=== PATIENT | male | born 1995 | race Asian ===

== ENCOUNTER 2024-02-13 21:30 | Emergency (ER) | payer OTHER ==
[~2024-02-13] VITALS: Ht 162.6 cm; Wt 68.2 kg
[2024-02-13 21:51] VITALS: TEMP 98.6
[2024-02-13 22:28] LABS: BASOPHILS % (AUTO) 0.4 % (0.0-2.0); EOSINOPHILS % (AUTO) 2.4 % (1.0-6.0); HEMATOCRIT 44.7 % (41-53); HEMOGLOBIN 14.9 g/dL (13.5-17.5); LYMPHOCYTES # (AUTO) 2.3 K/uL (1.0-4.8); LYMPHOCYTES % (AUTO) 24.3 % (22.0-44.0); MEAN CORPUSCULAR HEMOGLOBIN 30.4 pg (26.0-34.0); MEAN CORPUSCULAR HGB CONC 33.3 G/dL (31.0-37.0); MEAN CORPUSCULAR VOLUME 91 fL (80-100); MONOCYTES # (AUTO) 0.8 K/uL (0.1-1.0); MONOCYTES % (AUTO) 8.4 % (2.0-9.0); NEUTROPHILS # (AUTO) 6.2 K/uL (1.8-7.7); NEUTROPHILS % (AUTO) 64.5 % (40.0-70.0); PLATELET COUNT (AUTO) 257 K/uL (150-450); RED CELL DISTRIBUTION WIDTH 13.3 % (11.5-14.5); WHITE BLOOD COUNT (AUTO) 9.6 K/uL (4.5-11.0)
[2024-02-13 22:35] LABS: ANION GAP 11 mmol/L (8-16); CALCIUM, TOTAL 8.6 mg/dL (8.8-10.5); CARBON DIOXIDE 25 mmol/L (22-29); CHLORIDE 105 mmol/L (98-107); GLOMERULAR FILTR. RATE CALC > 60 mL/min (>60); GLUCOSE,RANDOM 85 mg/dL (70-110); POTASSIUM 3.9 mmol/L (3.5-5.1); SODIUM SERUM 141 mmol/L (136-145); UREA NITROGEN, BLOOD 23 mg/dL (7-18)
[2024-02-13 22:42] LABS: TROPONIN I-HIGH SENSITIVITY 10 ng/L (<76)
[2024-02-13 23:00] LABS: ALANINE AMINOTRANSFERASE 29 U/L (12-78); ALBUMIN 3.9 g/dL (3.4-5.0); ALKALINE PHOSPHATASE 60 U/L (46-116); ASPARTATE AMINOTRANSFERASE 38 U/L (15-37); BILIRUBIN,TOTAL 0.4 mg/dL (0.1-1.0); LIPASE 40 U/L (16-77); TOTAL PROTEIN, SERUM 7.3 g/dL (6.4-8.2)
[2024-02-13 23:01] LABS: CREATINE KINASE, TOTAL ONLY 1319 U/L (39-308)
[2024-02-14] MEDS: SODIUM CHLORIDE 0.9% 1,000 ML IV ONE ×2 (00:08→00:14)
[2024-02-14] MEDS: ONDANSETRON HCL 4 MG/2 ML VIAL IVP ONE (00:14)
[2024-02-14 02:35] LABS: ANION GAP 9 mmol/L (8-16); CALCIUM, TOTAL 7.2 mg/dL (8.8-10.5); CARBON DIOXIDE 22 mmol/L (22-29); CHLORIDE 111 mmol/L (98-107); CREATININE 0.83 mg/dL (0.60-1.30); GLOMERULAR FILTR. RATE CALC > 60 mL/min (>60); GLUCOSE,RANDOM 100 mg/dL (70-110); POTASSIUM 4.1 mmol/L (3.5-5.1); SODIUM SERUM 142 mmol/L (136-145); UREA NITROGEN, BLOOD 19 mg/dL (7-18)
[2024-02-14 02:59] LABS: CREATINE KINASE, TOTAL ONLY 943 U/L (39-308)
[2024-02-14 03:00] VITALS: BP 109/54; PULSE 55; RESP 16
== END 2024-02-14 03:41 | disposition home or self-care (01) ==
LOC: EMS 21:32
DX: M62.82 Rhabdomyolysis (principal)
CPT/HCPCS: 99285; 71045; 80053; 82550; 83690; 84484; 85025; 36415; 93005; 96374; 96361; 80048; J2405; J7030